=== PATIENT | female | born 1955 ===

== ENCOUNTER 2017-03-24 06:24 | Inpatient (IN) | payer OTHER, MEDICARE ==
[2017-03-19 17:51] VITALS: BMI 31.6
--- NOTE | 2017-03-24 07:02 | CP.PCM.HP ---
Past Patient History - Past Medical History & Family History Past Medical History?: Yes - Past Social History Smoking Status: Never Smoked - CARDIAC Hx Hypertension: Yes - PULMONARY Hx Respiratory Disorders: No - NEUROLOGICAL Hx Neurological Disorder: No - HEENT Hx HEENT Problems: No - RENAL Hx Chronic Kidney Disease: Yes Hx Kidney Stones: Yes - ENDOCRINE/METABOLIC Hx Endocrine Disorders: No - HEMATOLOGICAL/ONCOLOGICAL Hx Blood Disorders: No - INTEGUMENTARY Hx Dermatological Problems: No - MUSCULOSKELETAL/RHEUMATOLOGICAL Hx Musculoskeletal Disorders: Yes Hx Arthritis: Yes - GASTROINTESTINAL Hx Gastrointestinal Disorders: Yes Hx Gastroesophageal Reflux: Yes - GENITOURINARY/GYNECOLOGICAL Hx Genitourinary Disorders: No - PSYCHIATRIC Hx Psychophysiologic Disorder: No - SURGICAL HISTORY Hx Surgeries: Yes Hx Arthroscopy: Yes (right knee) Hx Orthopedic Surgery: Yes (cervical surgery) Other/Comment: liposuction abdominoplasty marquis breast reduction. right shoulder rotator cuff repair - ANESTHESIA Hx Anesthesia: Yes Hx Anesthesia Reactions: No Hx Malignant Hyperthermia: No Has any member of the family had a problem w/ anesthesia?: No Meds Allergies/Adverse Reactions: Allergies Allergy/AdvReac Type Severity Reaction Status Date / Time Latex, Natural Rubber Allergy RASH Verified 03/19/17 17:50 Results - Vital Signs Recent Vital Signs: Last Vital Signs Temp 98.6 F 03/24/17 06:54 Pulse 79 03/24/17 06:58 Resp 20 03/24/17 06:54 BP 142/90 03/24/17 06:54 Pulse Ox 100 03/24/17 06:54 Assessment & Plan - Date & Time Date: 03/24/17 Time: 07:01
[2017-03-24] MEDS ORDERED: Lidocaine 2% Jelly (Uro-Jet) ONE (07:07)
[2017-03-24] MEDS ORDERED: Ropivacaine 0.5% 30ML IV ONE ×2 (07:07→09:29)
[2017-03-24] MEDS ORDERED: Succinylcholine 200 mg/10 ml Inj IV ONE (07:14)
[2017-03-24] MEDS ORDERED: Dexamethasone 4 mg/1 ml ONE ×2 (07:14→09:06)
[2017-03-24] MEDS ORDERED: Phenylephrine 10 mg/ml Inj ONE (07:14)
[2017-03-24] MEDS ORDERED: Propofol 10 mg/ml Inj (20 ML) ONE (07:14)
[2017-03-24] MEDS ORDERED: Rocuronium 10 mg/ml (5 ml) ONE ×2 (07:14→09:12)
[2017-03-24] MEDS ORDERED: Lactated Ringer's 1,000 ML IV ONE ×3 (07:17→07:50)
[2017-03-24] MEDS ORDERED: Thrombin Topical 5,000 IU Spray Kit ONE (07:19)
[2017-03-24] MEDS ORDERED: Absorbable Gelatin Sponge Size 100 ONE (07:19)
[2017-03-24] MEDS ORDERED: Midazolam 2 MG/2 ML VIAL ONE (07:49)
--- NOTE | 2017-03-24 08:54 | PCM.ANESB3 ---
Femoral Nerve Block - Femoral Nerve Block Date of Procedure: 03/24/17 Anesthesiologist: Gera Pre-Procedure Diagnosis: Right knee OA Post-Procedure Diagnosis: Same Procedure Performed: Femoral Nerve Block Right - Procedure Femoral Nerve Block: The procedure was explained to the patient that it is for the post-operative pain management. Consent was obtained after a thorough discussion with the patient regarding the benefits and possible complications of local anesthetic block of the femoral nerve at the inguinal crease area. The patient was brought to the operating room and standard monitors were applied. Time-out was held with the circulating nurse to confirm the correct surgery and the appropriate block. Under general anesthesia, patient was placed in supine position with fully extended lower extremities and the right groin exposed. The femoral artery was then carefully palpated. The ultrasound transducer was then applied to this area in the transverse plane and the femoral nerve was visualized lateral to the femoral artery and underneath the fascia iliaca. After thorough identification, the inguinal crease area was prepped with Chloroprep solution. At this point, a #22 gauge Stimuplex 2-inch needle was inserted immediately lateral to the femoral artery pulse at the inguinal crease and advanced perpendicularly. The needle was inserted to the ultrasound transducer in-plane towards the femoral nerve in a [id number] direction. Needle advancement was performed carefully under direct ultrasound visualization. Nerve stimulator was used and twitch of the quadriceps muscle was obtained at current of _0.6____ MA. After negative aspiration, ___2__cc of __0.5___% ropivicaine ____was injected and this was followed with ___13___ cc of ___0.5____ % ___ ropivicaine . Under ultrasound guidance the local anesthetics were observed spreading below fascia iliaca and around the femoral nerve. The needle was removed intact and sterile dressing was applied. The patient had stable vital signs, was conscious and in no apparent distress. The patient tolerated the femoral nerve block well with stable vital signs and was prepared for subsequent surgery.
--- NOTE | 2017-03-24 08:59 | PCM.ANESB2 ---
Popliteal Nerve Block - Popliteal Nerve Block Date of Procedure: 03/24/17 Anesthesiologist: Gera Pre-Procedure Diagnosis: Right knee OA Post-Procedure Diagnosis: Same Procedure Performed: Popliteal Nerve Block Right - Procedure Popliteal Nerve Block: This procedure was explained to the patient that it is for post-operative pain management. Consent was obtained after a thorough discussion with the patient regarding the benefits and possible complications of local anesthetic block of the sciatic nerve at the popliteal level. The patient was brought to the operating room and standard monitors are applied. Time-out was held with the circulating nurse to confirm the correct surgery and the appropriate block. Under general anesthesia, patient's operative leg was gently raised and supported and the groove in between the biceps femoris and vastus lateralis muscles was carefully palpated. The skin approximately 8cm above the popliteal crease was then marked. The ultrasound transducer was then applied to the posterior thigh approximately 8cm above the popliteal crease in the transverse plane and the sciatic nerve before its division was visualized lateral to the popliteal artery and in between the bicep femoris and semimembranosus/ semitendinosus muscles. After identification, the lateral portion of the thigh was prepped with Chloroprep. At this point, a # 21 gauge Stimuplex insulated 4 inch needle was inserted into pre-marked area and advanced in a perpendicular direction. The needle was inserted above the ultrasound transducer in-plane towards the sciatic nerve in a [id number] direction. Needle advancement was performed carefully under direct ultrasound visualization. Nerve stimulator was used and dorsiflexion of the ___right__ foot was elicited at a current of ___0.5__ MA. After repeated negative aspiration, ___2__cc of __0.5___ % ropivicaine was injected and this was flowed with ___13___ cc of __0.5____% ropivicaine_ ___. Under ultrasound guidance the local anesthetics were observed tenting the epidural sheath and surrounding the roots of the sciatic nerve. The needle was removed intact and sterile dressing was applied. The patient tolerated the popliteal nerve block well with stable vital signs and was subsequently prepared for the surgery.
[2017-03-24] MEDS ORDERED: Neostigmine Methylsulfate 2 MG/2 ML ML IV ONE (09:54)
[2017-03-24] MEDS ORDERED: Neostigmine Methylsulfate 3mg/3ml Syringe IV ONE (09:54)
--- NOTE | 2017-03-24 11:24 | PCM.SURG1 ---
Surgeon's Initial Post Op Note - Surgeon's Notes Surgeon: Julia Exhibit Carpenter: ROSALIE Flores/ 2nd assist Jeison Kirk Type of Anesthesia: General Endo, Block Regional Anesthesia Administered By: Dr Turner Pre-Operative Diagnosis: severe tricompartmental O/A R knee. patellofemoral subluxation ( post traaumatic). lateral patella contracture. posterior capsular contracture Operative Findings: as above Post-Operative Diagnosis: as above Operation Performed: R TKR. proximal quad/pateella realignment. posteripor capsular release. lateral patella retimacular release. computer navigation Specimen/Specimens Removed: cartilage /synovium/bone Estimated Blood Loss: EBL {In ML}: 115 Blood Products Given: N/A Drains Used: No Drains Post-Op Condition: Good Date of Surgery/Procedure: 03/24/17 Time of Surgery/Procedure: 08:25 (time in room/anaesthesia indcution time 7:45)
[2017-03-24] MEDS: HYDROmorphone 0.5 mg/0.5 ml ISec IVP PRN ×2 (11:50→11:55)
--- NOTE | 2017-03-24 12:15 | PCM.OP ---
Operative Report - Operative Report Date of Surgery/Procedure: 03/24/17 Time of Surgery/Procedure: 08:25 (time in room 0745) Surgeon: Julia Production Director: ROSALIE Flores/ 2nd edison Kirk Anesthesia/Sedation: GETA/ regional Dr Turner/Dr Shankar Pre-Operative Diagnosis: Severe tricompartmental O/A Right knee. Patella subluixation Right knee Post-Operative Diagnosis: tricompartmental O/A Right knee. synovitis Right Knee. posterior capsular contracture. lateral patella contracture. patellofemoral instability Indication for Surgery: Severe pain and rstricted ROM R knee Operative Findings: as above Procedure/Operation Description: RightTKR. proximal quad/patella realignment/ posterior capsular release/lateral patella release. computer navigation. OPERATIVE PROCEDURE: After having obtained informed consent, after having identified side site and procedure in a critical pause/timeout,. after the satisfactory indcution of general and regional anaesthesia,the right lower extremity is prepped and free draped in the usual fashion for Right knee surgery. Possibility of mechanical failure, infection knee stiffness thromboembolic disease is discussed at length with the pt. Her [place]er is fine, but a culturally compettent machine dyer was in attendance. The patient wished the surgery to be accomplished umair. After exsanguinating the right lower extremity using a 6 inch Esmarch bandage determining which had been applied is inflate to 350 mmHg. A straight midline approach is made to the knee. Skin incision was richard and subcutaneous tissue and hemostasis was controlled with the aqua mantis. Medial arthrotomy was accomplished, dissection was carried around posterior medially to the direct head of the semimembranosus tendon. The patella was everted and the knee is flexed anterior and posterior cruciate ligaments are excised medial and lateral meniscectomies aaccomplished. The tibia was dislocated aneteriorly. The navigation/ accelerometer device is set on the anterior aspect of the tibia. The offset is dtermined after the strut is fixed with pins and the rubber band. Computer navigation commences at this point in time using Kyteorometer technology. Medial malleolus and lateral malleolus are registered. Tibial cut is set to 0 degrees varus/valgus and posterior slope to 3 degrees. the initial osteotomy of the arthroplasty is accomplished on the tibial side. The depth of cut had been carefully measured and guides to rotation of the proximal aspect of the tibia or the lateral tibial condyle . Malleolar axis and medial third of the tibial tuberosity. The proximal tibia is reamed and punched with the appropriate instrument. Attention was now turned to The femur.. Further osteophytes were debrided. At this point in time anterior and posterior synovectomy was accomplished. It should be noted that the patient has a preop 9 valgus deformity. This combined with osteoarthritic trochlear groove as well as deformity which causes patellar escape. The guide pin was placed superior to the intercondylar notch and the distal femoral guide is affixed. Accelkormeter and sensor are attached. Hip cenetr is found and the distal cut is set to 0 degrees varus. valgus. Depth to 10 mm. Distal cut is accomplished. Anterior and posaterior sizing to #10 femoral component distal thickness. Sizing is to a number 2 femoral componwent. Tibial componenet sized to number 2 as well. 4 in 1 block is affixed./ Anterior and posterior osteotomies are accomplished chamfer cuts are accomplishged as well. lamina personal counselor is placed, and posterior capsular contracture nand lateral patella contractures are noted. Posterior capsul is released, as well as a portion of the popliteus tebndon, b ecause of the preop valgus deformity. Posterior capsulae is released, and lateral patella is released as well. intercondylar notch guide is placed and intercondylar osteoromy is accomplished. hemostasis is accomplished in the posteriro compartmenjt and ithe intercondylar notch with the Aquamantys. Trialing is accomplioshed with #2 femoral component; #2 tibial copmponent and the 15 mm poly.. Flexion extension balance is excellent as is the overall alignment. attention is turned to the patella. Patella girth is approx 29mm. Free hand patella osteotomy is accomplished. Patella sizing is to #32 mm patella. Lateralpatella retinacular releaseis accomplioshed to assure patella balance. trialing is excellent; flexion to 130 degrees full extension and no evidence for patella instability. With excellent flexion and extension balance, and with excellent p[atellofemoral girth and balance, the femur tibia and patella are prepared with the pulseevac. The #2 cemented femoral component is applied;#2 tibial tray and 32 mm polethylene patella are cemented. 15 mm tibial poly is inserted with excellent stability. At this popint, proximal quadriceps realignment is accomplished by imbricating the VMO to desired position for correction of patella subluxation. Closure is with #2 fiberwqire/#1 vicryl 0-quill, 2-0 vicryl and charles fro skin. [place] was deflated and hemostasis onbbtained prio to closure. Andre Cunha dressing and knee immobilizer apllien End OP note [employer] Estimated Blood Loss: 115 cc Blood Replaced: 0 Sponge/Instrument Count: correct Drains: 0 Complications: none Specimen: bone/cartilage/synovium Discharge & Condition: stable
--- NOTE | 2017-03-24 12:53 | RAD ---
PROCEDURE: Right Knee Radiographs. HISTORY: s/p R TKR COMPARISON: None. FINDINGS: BONES: Expected postoperative findings JOINTS: Satisfactory postoperative status JOINT EFFUSION: None. OTHER FINDINGS: None. IMPRESSION: Satisfactory postoperative status.
[2017-03-24] MEDS: Lactated Ringer's 1,000 ML IV SCH (13:51)
[2017-03-24] MEDS: Metoprolol Succinate 50 mg XL Tab PO SCH (14:40)
[2017-03-24] MEDS: ceFAZolin 1 GM in Sodium Chloride 0.9% 100 ML IVPB SCH (16:01)
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
[2017-03-25] MEDS: ceFAZolin 1 GM in Sodium Chloride 0.9% 100 ML IVPB SCH (00:47)
[2017-03-25] MEDS: Lactated Ringer's 1,000 ML IV SCH ×2 (03:24→08:57)
--- NOTE | 2017-03-25 06:55 | CP.PCM.PN ---
Subjective - Date & Time of Evaluation Date of Evaluation: 03/25/17 Time of Evaluation: 06:50 - Subjective Subjective: S pt with post nop discomfort Objective - Vital Signs/Intake and Output Vital Signs (last 24 hours): Temp Pulse Resp BP Pulse Ox 98.7 F 98 H 20 148/80 98 03/25/17 04:00 03/25/17 04:00 03/25/17 04:00 03/25/17 04:00 03/25/17 04:00 Intake and Output: 03/24/17 03/25/17 18:59 06:59 Intake Total 1450 Balance 1450 - Medications Medications: Current Medications Cyclobenzaprine HCl (Flexeril) 5 mg PO DAILY [facility] Enoxaparin Sodium (Lovenox) 40 mg SC DAILY [facility] PRN Reason: Protocol Hydrochlorothiazide (Hydrodiuril) 50 mg PO DAILY [facility] Last Admin: 03/24/17 14:40 Dose: Not Given Hydromorphone HCl (Dilaudid 0.2 Mg/Ml Senior Sales Administrator) 0 mg IV PRN PRN; Protocol PRN Reason: Pain, severe (8-10) Last Admin: 03/25/17 00:42 Dose: 6 mg Lactated Ringer's (Lactated Ringer's) 1,000 mls @ 50 mls/hr IV .Q20H [facility] Last Admin: 03/25/17 03:24 Dose: 50 mls/hr Metoprolol Succinate (Toprol Xl) 50 mg PO DAILY [facility] Last Admin: 03/24/17 14:40 Dose: Not Given Ondansetron HCl (Zofran Inj) 4 mg IVP Q6 PRN PRN Reason: Nausea/Vomiting Last Admin: 03/25/17 02:12 Dose: 4 mg Pantoprazole Sodium (Protonix Ec Tab) 40 mg PO DAILY [facility] - Additional Findings Additional findings: Objective systemic wnl MUsculoskekltal 'stance/gait- deferred dressing dry and intact N/V intact post op Xrasy - acceptabl;e position of construct Assessment and Plan - Assessment and Plan (Free Text) Assessment: A- s/p R TKR P_ orthopedically stable fullweight bearing; active passive ROM eval for subacute rehab
--- NOTE | 2017-03-25 07:43 | CP.PCM.HP ---
History of Present Illness - History of Present Illness History of Present Illness: pt admitted s/p R tkr after failing outpt conservative therapy. 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 has h/o htn. ortho and cardio consults appriciated. am labs pending. distal pms intact, cap refill brisk, dsg c/d/i Present on Admission - Present on Admission Any Indicators Present on Admission: No Review of Systems - Musculoskeletal Musculoskeletal: As Per HPI, Arthralgias Past Patient History - Past Medical History & Family History Past Medical History?: Yes - Past Social History Smoking Status: Never Smoked - CARDIAC Hx Cardiac Disorders: Yes Hx Hypertension: Yes - PULMONARY Hx Respiratory Disorders: No - NEUROLOGICAL Hx Neurological Disorder: No - HEENT Hx HEENT Problems: No - RENAL Hx Chronic Kidney Disease: Yes Hx Kidney Stones: Yes - ENDOCRINE/METABOLIC Hx Endocrine Disorders: No - HEMATOLOGICAL/ONCOLOGICAL Hx Blood Disorders: No - INTEGUMENTARY Hx Dermatological Problems: No - MUSCULOSKELETAL/RHEUMATOLOGICAL Hx Musculoskeletal Disorders: Yes Hx Arthritis: Yes - GASTROINTESTINAL Hx Gastrointestinal Disorders: Yes Hx Gastroesophageal Reflux: Yes - GENITOURINARY/GYNECOLOGICAL Hx Genitourinary Disorders: No - PSYCHIATRIC Hx Psychophysiologic Disorder: No - SURGICAL HISTORY Hx Surgeries: Yes Hx Arthroscopy: Yes (right knee) Hx Orthopedic Surgery: Yes (cervical surgery) Other/Comment: liposuction abdominoplasty marquis breast reduction. right shoulder rotator cuff repair - ANESTHESIA Hx Anesthesia: Yes Hx Anesthesia Reactions: No Hx Malignant Hyperthermia: No Has any member of the family had a problem w/ anesthesia?: No Meds Allergies/Adverse Reactions: Allergies Allergy/AdvReac Type Severity Reaction Status Date / Time Latex, Natural Rubber Allergy RASH Verified 03/19/17 17:50 Physical Exam - Constitutional Appears: Well, Non-toxic, No Acute Distress - Head Exam Head Exam: ATRAUMATIC, NORMAL INSPECTION, NORMOCEPHALIC - Eye Exam Eye Exam: EOMI, Normal appearance, PERRL Pupil Exam: NORMAL ACCOMODATION, PERRL - ENT Exam ENT Exam: Mucous Membranes Moist, Normal Exam - Neck Exam Neck exam: Positive for: Normal Inspection - Respiratory Exam Respiratory Exam: Clear to Auscultation Bilateral, NORMAL BREATHING PATTERN - Cardiovascular Exam Cardiovascular Exam: REGULAR RHYTHM - GI/Abdominal Exam GI & Abdominal Exam: Normal Bowel Sounds, Soft. absent: Tenderness - Extremities Exam Extremities exam: Positive for: full ROM, normal capillary refill, normal inspection, tenderness, pedal pulses present - Back Exam Back exam: NORMAL INSPECTION - Neurological Exam Neurological exam: Alert, CN II-XII Intact, Normal Gait, Oriented x3, Reflexes Normal - Psychiatric Exam Psychiatric exam: Normal Affect, Normal Mood - Skin Skin Exam: Dry, Intact, Normal Color, Warm Results - Vital Signs Recent Vital Signs: Last Vital Signs Temp 98.7 F 03/25/17 04:00 Pulse 98 H 03/25/17 04:00 Resp 20 03/25/17 04:00 BP 148/80 03/25/17 04:00 Pulse Ox 98 03/25/17 04:00 - Labs Labs: Laboratory Results - last 24 hr 03/24/17 03/24/17 06:45 07:50 Blood Type A POSITIVE Blood Type Confirm A POSITIVE Antibody Screen Negative BBK History Checked No verified bt Assessment & Plan (1) Osteoarthritis of right knee Assessment and Plan: pod 1 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 This is because of the severity of symptoms shown, intensity of services needed, and/or the medical risk in this patient being treated as an outpatient. - . Bed Request Type: Med/Surg Admitting Physician: Sadie Gomez
[2017-03-25] MEDS: Pantoprazole 40 mg EC Tab PO SCH (08:55)
[2017-03-25] MEDS: Metoprolol Succinate 50 mg XL Tab PO SCH (08:56)
[2017-03-25] MEDS ORDERED: DICLOFENAC 25 MG PO SCH (09:00)
[2017-03-25 09:31] LABS: BASO % 0.2 % (0.0-2.0); HEMOGLOBIN 11.6 g/dL (12.0-16.0); LYMPH # 1.3 K/uL (1.0-4.3); LYMPH % 12.7 % (20.0-40.0); MEAN CELL VOLUME 90.5 fl (81.0-99.0); MEAN CORPUSCULAR HEMOGLOBIN 31.1 pg (27.0-31.0); MEAN CORPUSCULAR HGB CONC 34.3 g/dL (33.0-37.0); MEAN PLATELET VOLUME 8.2 fl (7.2-11.7); MONO # 0.8 K/uL (0.0-0.8); MONO % 8.4 % (0.0-10.0); NEUT # 7.8 K/uL (1.8-7.0); NEUT % 78.7 % (50.0-75.0); NRBC % 0.1 % (0.0-0.0); RBC 3.74 Mil/uL (3.80-5.20); RED CELL DISTRIBUTION WIDTH 13.5 % (11.5-14.5); WHITE BLOOD COUNT 9.9 K/uL (4.8-10.8)
[2017-03-25 09:43] LABS: ALB/GLOB RATIO 1.4 (1.0-2.1); ALBUMIN 4.2 g/dL (3.5-5.0); ALT/SGPT 48 U/L (9-52); AST/SGOT 37 U/L (14-36); BLOOD UREA NITROGEN 21 mg/dl (7-17); GFR AFRICAN-AMERICAN > 60; GFR NON-AFRICAN AMERICAN > 60
[2017-03-25] MEDS: Enoxaparin 40 mg Syringe SC SCH (14:00)
[2017-03-25] MEDS ORDERED: Oxycodone/Acetaminophen 5/325 mg Tab PO PRN ×2 (20:34→20:35)
[2017-03-25] MEDS: oxyCODONE 20 mg ER Tab (oxyCONTIN) PO SCH (21:36)
[2017-03-26] MEDS: Lactated Ringer's 1,000 ML IV SCH (03:18)
[2017-03-26 07:32] LABS: ALB/GLOB RATIO 1.3 (1.0-2.1); ALBUMIN 3.5 g/dL (3.5-5.0); ALT/SGPT 44 U/L (9-52); AST/SGOT 25 U/L (14-36); BASO % 0.2 % (0.0-2.0); BLOOD UREA NITROGEN 13 mg/dl (7-17); CALCIUM 8.6 mg/dL (8.4-10.2); GFR AFRICAN-AMERICAN > 60; GFR NON-AFRICAN AMERICAN > 60; HEMOGLOBIN 9.7 g/dL (12.0-16.0); LYMPH # 1.7 K/uL (1.0-4.3); LYMPH % 16.6 % (20.0-40.0); MEAN CELL VOLUME 91.8 fl (81.0-99.0); MEAN CORPUSCULAR HEMOGLOBIN 31.1 pg (27.0-31.0); MEAN CORPUSCULAR HGB CONC 33.9 g/dL (33.0-37.0); MEAN PLATELET VOLUME 8.7 fl (7.2-11.7); MONO % 9.8 % (0.0-10.0); NEUT # 7.4 K/uL (1.8-7.0); NEUT % 73.4 % (50.0-75.0); RBC 3.11 Mil/uL (3.80-5.20); RED CELL DISTRIBUTION WIDTH 13.5 % (11.5-14.5); WHITE BLOOD COUNT 10.1 K/uL (4.8-10.8)
--- NOTE | 2017-03-26 08:10 | CP.PCM.PN ---
Subjective - Date & Time of Evaluation Date of Evaluation: 03/26/17 Time of Evaluation: 08:10 - Subjective Subjective: no distress/complaints except mild headache. r knee pain controlled w/ meds no f/c, n/v/d. bw noted. mild anemia noted. Objective - Vital Signs/Intake and Output Vital Signs (last 24 hours): Temp Pulse Resp BP Pulse Ox 98.8 F 119 H 20 122/72 93 L 03/26/17 07:46 03/26/17 07:46 03/26/17 07:46 03/26/17 07:46 03/26/17 07:46 - Medications Medications: Current Medications Celecoxib (Celebrex) 200 mg PO Q12 [facility] Last Admin: 03/25/17 21:35 Dose: 200 mg Cyclobenzaprine HCl (Flexeril) 5 mg PO DAILY [facility] Last Admin: 03/25/17 08:55 Dose: 5 mg Enoxaparin Sodium (Lovenox) 40 mg SC DAILY [facility] PRN Reason: Protocol Last Admin: 03/25/17 14:00 Dose: 40 mg Ferrous Sulfate (Feosol) 325 mg PO BID [facility] Hydrochlorothiazide (Hydrodiuril) 50 mg PO DAILY [facility] Last Admin: 03/25/17 08:55 Dose: 50 mg Lactated Ringer's (Lactated Ringer's) 1,000 mls @ 50 mls/hr IV .Q20H [facility] Last Admin: 03/26/17 03:18 Dose: 50 mls/hr Metoprolol Succinate (Toprol Xl) 50 mg PO DAILY [facility] Last Admin: 03/25/17 08:56 Dose: 50 mg Ondansetron HCl (Zofran Inj) 4 mg IVP Q6 PRN PRN Reason: Nausea/Vomiting Last Admin: 03/25/17 08:44 Dose: 4 mg Oxycodone HCl (Oxycontin Extended Release Tab) 20 mg PO Q12 [facility] Last Admin: 03/25/17 21:36 Dose: 20 mg Oxycodone/Acetaminophen (Percocet 5/325 Mg Tab) 1 tab PO Q4 PRN PRN Reason: Pain, moderate (4-7) Stop: 03/28/17 20:35 Oxycodone/Acetaminophen (Percocet 5/325 Mg Tab) 2 tab PO Q4 PRN PRN Reason: Pain, severe (8-10) Stop: 03/28/17 20:36 Last Admin: 03/26/17 03:13 Dose: 2 tab Pantoprazole Sodium (Protonix Ec Tab) 40 mg PO DAILY [facility] Last Admin: 03/25/17 08:55 Dose: 40 mg - Labs Labs: 03/26/17 06:30 03/26/17 06:30 - Constitutional Appears: Well, Non-toxic, No Acute Distress - Head Exam Head Exam: ATRAUMATIC, NORMAL INSPECTION, NORMOCEPHALIC - Eye Exam Eye Exam: EOMI, Normal appearance, PERRL Pupil Exam: NORMAL ACCOMODATION, PERRL - ENT Exam ENT Exam: Mucous Membranes Moist, Normal Exam - Neck Exam Neck Exam: Full ROM, Normal Inspection. absent: Lymphadenopathy - Respiratory Exam Respiratory Exam: Clear to Ausculation Bilateral, NORMAL BREATHING PATTERN - Cardiovascular Exam Cardiovascular Exam: REGULAR RHYTHM, RRR, +S1, +S2. absent: Murmur - GI/Abdominal Exam GI & Abdominal Exam: Soft, Normal Bowel Sounds. absent: Tenderness - Extremities Exam Extremities Exam: Full ROM, Normal Capillary Refill, Normal Inspection, Tenderness. absent: Joint Swelling, Pedal Edema - Back Exam Back Exam: NORMAL INSPECTION - Neurological Exam Neurological Exam: Alert, Awake, CN II-XII Intact, Normal Gait, Oriented x3 - Psychiatric Exam Psychiatric exam: Normal Affect, Normal Mood - Skin Skin Exam: Dry, Intact, Normal Color, Warm Assessment and Plan (1) Osteoarthritis of right knee Status: Acute (2) DVT prophylaxis Status: Acute (3) HTN (hypertension) Status: Acute - Assessment and Plan (Free Text) Assessment: 1) Osteoarthritis of right knee Assessment and Plan: pod 1 s/p tkr metal fence erector pain control pt/ot mary sw for placement Status: Acute (2) DVT prophylaxis Assessment and Plan: scd and ae hose lovenox Status: Acute (3) HTN (hypertension) Assessment and Plan: cont home meds cardio Status: Acute mild anemia-start feosol
[2017-03-26] MEDS: oxyCODONE 20 mg ER Tab (oxyCONTIN) PO SCH (08:54)
[2017-03-26] MEDS: Pantoprazole 40 mg EC Tab PO SCH (08:56)
[2017-03-26] MEDS: Enoxaparin 40 mg Syringe SC SCH (08:57)
[2017-03-26] MEDS: Metoprolol Succinate 50 mg XL Tab PO SCH (08:58)
[2017-03-26] MEDS ORDERED: Lactated Ringer's 1,000 ML IV SCH (11:34)
[2017-03-26 15:19] VITALS: PULSE 86; RESP 18
[2017-03-26 16:29] VITALS: BP 119/76; TEMP 98; O2SAT 95
--- NOTE | 2017-03-26 16:37 | CP.PCM.PN ---
Subjective - Date & Time of Evaluation Date of Evaluation: 03/26/17 Time of Evaluation: 16:35 - Subjective Subjective: S- pt copmfortable at bedrest- minimal; post op discomfort Objective - Vital Signs/Intake and Output Vital Signs (last 24 hours): Temp Pulse Resp BP Pulse Ox 98 F 86 18 119/76 95 03/26/17 16:28 03/26/17 16:28 03/26/17 16:28 03/26/17 16:28 03/26/17 16:28 - Medications Medications: Current Medications Celecoxib (Celebrex) 200 mg PO Q12 [facility] Last Admin: 03/26/17 08:57 Dose: 200 mg Cyclobenzaprine HCl (Flexeril) 5 mg PO DAILY [facility] Last Admin: 03/26/17 08:56 Dose: 5 mg Enoxaparin Sodium (Lovenox) 40 mg SC DAILY [facility] PRN Reason: Protocol Last Admin: 03/26/17 08:57 Dose: 40 mg Ferrous Sulfate (Feosol) 325 mg PO BID [facility] Last Admin: 03/26/17 09:00 Dose: 325 mg Hydrochlorothiazide (Hydrodiuril) 50 mg PO DAILY [facility] Last Admin: 03/26/17 08:55 Dose: 50 mg Lactated Ringer's (Lactated Ringer's) 1,000 mls @ 100 mls/hr IV .Q10H [facility] Metoprolol Succinate (Toprol Xl) 50 mg PO DAILY [facility] Last Admin: 03/26/17 08:58 Dose: 50 mg Ondansetron HCl (Zofran Inj) 4 mg IVP Q6 PRN PRN Reason: Nausea/Vomiting Last Admin: 03/25/17 08:44 Dose: 4 mg Oxycodone HCl (Oxycontin Extended Release Tab) 20 mg PO Q12 [facility] Last Admin: 03/26/17 08:54 Dose: 20 mg Oxycodone/Acetaminophen (Percocet 5/325 Mg Tab) 1 tab PO Q4 PRN PRN Reason: Pain, moderate (4-7) Stop: 03/28/17 20:35 Oxycodone/Acetaminophen (Percocet 5/325 Mg Tab) 2 tab PO Q4 PRN PRN Reason: Pain, severe (8-10) Stop: 03/28/17 20:36 Last Admin: 03/26/17 03:13 Dose: 2 tab Pantoprazole Sodium (Protonix Ec Tab) 40 mg PO DAILY [facility] Last Admin: 03/26/17 08:56 Dose: 40 mg - Labs Labs: 03/26/17 06:30 03/26/17 06:30 - Psychiatric Exam Additional comments: Objectiove systemic - wnl Musculoskekeltal stance/gait- defrred R knee dressing dry and intact pt comfortable Assessment and Plan - Assessment and Plan (Free Text) Assessment: A- s/p R TKR P- FWB actiuve /passsive ROMN D/C tyoday Knee immobilizer only to sleep Full weight bearing
--- NOTE | 2017-03-27 09:43 | CP.PCM.DIS ---
Provider - Provider Date of Admission: 03/24/17 11:22 Attending physician: Sadie Gomez MD Primary care physician: Andrés Dumont III, MD Time Spent in preparation of Discharge (in minutes): 15 Diagnosis - Discharge Diagnosis (1) Osteoarthritis of right knee Status: Acute (2) DVT prophylaxis Status: Acute (3) HTN (hypertension) Status: Acute Hospital Course - Lab Results Lab Results: Most Recent Lab Values WBC 10.1 K/uL (4.8-10.8) 03/26/17 06:30 RBC 3.11 Mil/uL (3.80-5.20) L 03/26/17 06:30 Hgb 9.7 g/dL (12.0-16.0) L 03/26/17 06:30 Hct 28.6 % (34.0-47.0) L 03/26/17 06:30 MCV 91.8 fl (81.0-99.0) 03/26/17 06:30 MCH 31.1 pg (27.0-31.0) H 03/26/17 06:30 MCHC 33.9 g/dL (33.0-37.0) 03/26/17 06:30 RDW 13.5 % (11.5-14.5) 03/26/17 06:30 Plt Count 229 K/uL (130-400) 03/26/17 06:30 MPV 8.7 fl (7.2-11.7) 03/26/17 06:30 Neut % (Auto) 73.4 % (50.0-75.0) 03/26/17 06:30 Lymph % (Auto) 16.6 % (20.0-40.0) L 03/26/17 06:30 [place] % (Auto) 9.8 % (0.0-10.0) 03/26/17 06:30 Eos % (Auto) 0.0 % (0.0-4.0) 03/26/17 06:30 Baso % (Auto) 0.2 % (0.0-2.0) 03/26/17 06:30 Neut # 7.4 K/uL (1.8-7.0) H 03/26/17 06:30 Lymph # 1.7 K/uL (1.0-4.3) 03/26/17 06:30 [place] # 1.0 K/uL (0.0-0.8) H 03/26/17 06:30 Eos # 0.0 K/uL (0.0-0.7) 03/26/17 06:30 Baso # 0.0 K/uL (0.0-0.2) 03/26/17 06:30 Sodium 136 mmol/l (132-148) 03/26/17 06:30 Potassium 3.8 MMOL/L (3.6-5.0) 03/26/17 06:30 Chloride 96 mmol/L (98-107) L 03/26/17 06:30 Carbon Dioxide 37 mmol/L (22-30) H 03/26/17 06:30 Anion Gap 7 (10-20) L 03/26/17 06:30 BUN 13 mg/dl (7-17) 03/26/17 06:30 Creatinine 0.6 mg/dL (0.7-1.2) L 03/26/17 06:30 Est GFR ( Amer) > 60 03/26/17 06:30 Est GFR (Non-Af Amer) > 60 03/26/17 06:30 Random Glucose 129 mg/dL (65-105) H 03/26/17 06:30 Calcium 8.6 mg/dL (8.4-10.2) 03/26/17 06:30 Total Bilirubin 0.6 mg/dl (0.2-1.3) 03/26/17 06:30 AST 25 U/L (14-36) 03/26/17 06:30 ALT 44 U/L (9-52) 03/26/17 06:30 Alkaline Phosphatase 56 U/L (38-126) 03/26/17 06:30 Total Protein 6.2 G/DL (6.3-8.2) L 03/26/17 06:30 Albumin 3.5 g/dL (3.5-5.0) 03/26/17 06:30 Globulin 2.8 gm/dL (2.2-3.9) 03/26/17 06:30 Albumin/Globulin Ratio 1.3 (1.0-2.1) 03/26/17 06:30 Blood Type A POSITIVE 03/24/17 06:45 Blood Type Confirm A POSITIVE 03/24/17 07:50 Antibody Screen Negative 03/24/17 06:45 BBK History Checked No verified bt 03/24/17 06:45 Discharge Exam - Head Exam Head Exam: ATRAUMATIC, NORMAL INSPECTION, NORMOCEPHALIC Discharge Plan - Follow Up Plan Condition: GOOD Disposition: REHAB FACILITY/REHAB UNIT Instructions: Knee Replacement (DC) Additional Instructions: patient cleared for discharge to [place] today under cont.Pt/OT f/u labs cont. DVT PPX hr 80s after ivf final dx-tkr r knee oa for mary today Referrals: Andrés Dumont III, MD [Primary Care Provider] - Jacinda Strickland MD [Medical Doctor] -
== END 2017-03-26 16:30 | DRG 470 ==
LOC: H.OPSURG 06:24 → H.MEDSURG1 11:22
PROVIDERS: ADMIT Family Medicine; ATTEND Family Medicine
PROC: 0SRC0J9 Replacement of Right Knee Joint with Synthetic Substitute, Cemented, Open Approach (ICD-10-PCS; principal; 2017-03-24 09:45)
PROC: 3E0T3CZ (ICD-10-PCS; 2017-03-24 09:45)
PROC: 3E0T33Z Introduction of Anti-inflammatory into Peripheral Nerves and Plexi, Percutaneous Approach (ICD-10-PCS; 2017-03-24 09:45)
DX: M17.11 Unilateral primary osteoarthritis, right knee (principal); M65.861 Other synovitis and tenosynovitis, right lower leg; I12.9 Hypertensive chronic kidney disease with stage 1 through stage 4 chronic kidney disease, or unspecified chronic kidney disease; D64.9 Anemia, unspecified; N18.9 Chronic kidney disease, unspecified; K21.9 Gastro-esophageal reflux disease without esophagitis; Z91.040 Latex allergy status; Z87.442 Personal history of urinary calculi